=== PATIENT | male | born 1950 | race Caucasian/White ===

== ENCOUNTER 2017-03-09 14:16 | Outpatient (CLI) | payer BC, MEDICARE ==
[2017-03-09 15:48] LABS: Hematocrit 43.5 % (42.0-52.0); Mean Platelet Volume 8.2 fL (7.4-10.4); Red Blood Cell (RBC) Count 4.69 mill/uL (4.70-6.10); White Blood Cell (WBC) Count 8.2 thou/uL (4.8-10.8)
[2017-03-09 15:54] LABS: PTT 27.7 SEC (22.9-36.1)
[2017-03-09 16:01] LABS: Anion Gap 13 mmol/L (10-20); BUN (Urea Nitrogen) 17 mg/dL (8.4-25.7); Calc. Creatinine Clearance 0 mL/min (70-130); Calcium 9.6 mg/dL (7.8-10.44); Carbon Dioxide 26 mmol/L (23-31); Chloride 104 mmol/L (98-107); Estimated GFR-MDRD Greater than 90
== END 2017-03-09 14:17 | disposition home or self-care (01) ==
LOC: LABBT 14:16
PROVIDERS: ATTEND Surgery
DX: Z01.818 Encounter for other preprocedural examination (principal); M48.02 Spinal stenosis, cervical region; M50.20 Other cervical disc displacement, unspecified cervical region; M54.12 Radiculopathy, cervical region
CPT/HCPCS: 80048; 85027; 85610; 85730; 93005; 93010

== ENCOUNTER 2017-03-13 05:59 | Day surgery (SDC) | payer BC, MEDICARE ==
[2017-03-13] MEDS ORDERED: Thrombin 5000 UNITS/5 ML VIAL ONE (06:32)
[2017-03-13] MEDS ORDERED: Fentanyl 250 MCG/5 ML VIAL ONE (06:32)
[2017-03-13] MEDS ORDERED: Sodium Chloride 0.9% 10 ML ONE (06:32)
[2017-03-13] MEDS ORDERED: Midazolam HCl 2 mg/2 ml Vial ONE (06:32)
[2017-03-13] MEDS ORDERED: CEFAZOLIN/Water 2 GM/20 ML SYRINGE ONE (06:34)
[2017-03-13] MEDS ORDERED: Bisacodyl 10 MG SUPP PR PRN (10:49)
[2017-03-13] MEDS ORDERED: Promethazine HCl 25 MG/ML VIAL IM PRN ×2 (10:49→10:50)
[2017-03-13] MEDS ORDERED: Mag-Al 1200 mg/1200 mg/30 ML UDCUP PO PRN (10:49)
[2017-03-13] MEDS ORDERED: Acetaminophen 325 MG TAB PO PRN (10:49)
[2017-03-13] MEDS ORDERED: Acetaminophen/Codeine 30-300mg Tablet PO PRN (10:49)
[2017-03-13] MEDS ORDERED: Fleet Enema 133 ML BOT PR PRN (10:49)
[2017-03-13] MEDS ORDERED: traMADol HCl 50 MG TAB PO PRN (10:49)
[2017-03-13] MEDS ORDERED: Milk Of Magnesia 30 ML UDCUP PO PRN (10:49)
[2017-03-13] MEDS ORDERED: Morphine 2 MG/ML SYRINGE SLOW IVP PRN (10:49)
[2017-03-13] MEDS ORDERED: Ondansetron HCl/PF 4 MG/2 ML Vial IVP PRN (10:50)
[2017-03-13] MEDS ORDERED: Promethazine HCl 25 MG/ML VIAL SLOW IVP PRN (10:50)
[2017-03-13] MEDS ORDERED: CEFAZOLIN/Water 2 GM/20 ML SYRINGE SLOW IVP SCH (11:00)
[2017-03-13] MEDS ORDERED: Fentanyl 100 MCG/2 ML VIAL ONE ×2 (11:01→11:23)
--- NOTE | 2017-03-13 12:06 | OP ---
DATE OF PROCEDURE: 03/13/2017 OR: OR #12. WOUND TYPE: Type 1 wound. SURGEON: Ankur Moreau M.D. SOLAR FABRICATION TECHNICIAN: Apolinar Wesley PA-C. PREPROCEDURE DIAGNOSIS: Cervical stenosis with neck and arm pain. POSTPROCEDURE DIAGNOSES: Cervical stenosis with neck and arm pain. PROCEDURE: 1. Anterior C4-C5, C5-C6 diskectomies for decompression of spinal cord in the C5 and C6 nerve roots respectively. 2. Preparation of the endplates C4-C5, C5-C6 for placement of interbody spacer packed with local rachel ne autograft obtained from same incision and allograft, C4-C5 and C5-C6 for arthrodesis. 3. Anterior cervical plate and screw fixation, C4, C5, C6. 4. Use of operative microscope for microdissection. PROCEDURE: After informed consent was obtained from the patient, the patient brought to OR 12. Pro per patient pause and identification was carried out. He was placed under excellent general endotra cheal anesthesia and positioned supine on the operating table. All appropriate points were padded. Cervical spine was kept in neutral position. Through a right anterior oblique fernando that was drawn out we identified an appropriate trajectory using gross and fluoroscopic visualization for approach to the C4, C5, C6 segments. This area was sterilely cleansed, prepared, and draped. Proper patient pause and identification was again carried out. The wound was then opened with a combination of sh gina, monopolar and blunt dissection. We proceeded medial to the right carotid sheath and lateral to the tracheoesophageal bundle. We came upon the prevertebral layer of deep cervical fascia and the longus colli muscles and these were swept laterally. Localization film confirmed our area of intere st and the C4, C5, C6 segments were all exposed. Distraction at C4-C5 then occurred and the [facility] ope was brought in for microdissection. A diskectomy at C4-C5 was performed with excellent decompre ssion of the common dural tube and bilateral C5 nerve roots. The endplates were prepared and interb bettye spacer packed with local bone autograft obtained from same incision and allograft was placed at C4-C5 for arthrodesis. We then turned our attention to C5-C6 segment and distraction then occurred at C5-C6 and a diskectomy was performed at that segment as well with excellent decompression of the common dural tube and bilateral C6 nerve roots. Endplates were prepared and interbody spacer packed with local bone autograft obtained from same incision and allograft was placed at C5-C6 for arthrod esis. The microscope was then removed. Anterior cervical plate and screw fixation, C4, C5, C6 then occurred, final tightening occurred. We were satisfied with our construct both with gross and fluo roscopic visualization. The wound was copiously irrigated. Hemostasis was maximized throughout and the wound was then closed in anatomic layers following the placement of a drain. The patient then emerged from anesthesia.
[2017-03-13 12:33] VITALS: BMI 31.0
[2017-03-13] MEDS ORDERED: Ondansetron HCl/PF 4 MG/2 ML Vial ONE (12:54)
[2017-03-13] MEDS ORDERED: Glycopyrrolate 0.2 MG/ML 5 ML SYRINGE ONE (12:54)
[2017-03-13] MEDS ORDERED: Cefepime 1 GM VIAL ONE (12:54)
[2017-03-13] MEDS ORDERED: PHENYLEPHRINE-NS 100 MCG/ML 10 ML SYRINGE ONE (12:54)
[2017-03-13] MEDS ORDERED: Propofol 200 MG/20 ML VIAL ONE (12:54)
[2017-03-13] MEDS ORDERED: Lidocaine 1% PF 5 ML VIAL ONE (12:54)
[2017-03-13] MEDS: Sodium Chloride 0.9% 1,000 ML IV SCH (13:08)
[2017-03-13] MEDS ORDERED: CEFAZOLIN 1 GM VIAL ONE (14:27)
[2017-03-13] MEDS: CEFAZOLIN/Water 2 GM/20 ML SYRINGE SLOW IVP SCH ×2 (16:49→23:40)
[2017-03-13] MEDS: tiZANidine HCl 4 MG TAB PO PRN (20:49)
[2017-03-13] MEDS: metFORMIN XR 500 MG TAB PO SCH (20:50)
[2017-03-13] MEDS ORDERED: Atorvastatin Calcium 10 MG TAB PO SCH ×2 (21:00)
[2017-03-13] MEDS ORDERED: Vit A,C & E/Lutein/Minerals Tablet PO SCH (21:00)
[2017-03-13] MEDS ORDERED: FOLIC ACID PO SCH (21:00)
[2017-03-13] MEDS ORDERED: metFORMIN XR 500 MG TAB PO SCH (21:00)
[2017-03-13] MEDS ORDERED: Multivit, Therapeutic 1 TAB PO SCH (21:00)
[2017-03-13] MEDS ORDERED: B6 PO SCH ×2 (21:00)
[2017-03-13] MEDS ORDERED: Amlodipine 10 MG TAB PO SCH ×2 (21:00)
[2017-03-13] MEDS ORDERED: Stress 600 With Zinc 1 TAB PO SCH (21:00)
[2017-03-13] MEDS ORDERED: Non-Formulary Item 1 EACH (Vitamin B Complex [B Complex] 1 TAB) PO SCH (21:00)
[2017-03-13] MEDS ORDERED: MULTIVITAMIN PO SCH (21:00)
[2017-03-13] MEDS ORDERED: IRON PO SCH (21:00)
[2017-03-13] MEDS ORDERED: B12 PO SCH ×2 (21:00)
[2017-03-13] MEDS ORDERED: LEVOMEFOLATE CALCIUM PO SCH ×2 (21:00)
[2017-03-13] MEDS: HYDROcodone/Acetaminophen 7.5/325 mg Tablet PO PRN (23:38)
[2017-03-14] MEDS: Sodium Chloride 0.9% 1,000 ML IV SCH (02:32)
[2017-03-14] MEDS: tiZANidine HCl 4 MG TAB PO PRN (02:35)
[2017-03-14] MEDS: HYDROcodone/Acetaminophen 7.5/325 mg Tablet PO PRN (05:52)
[2017-03-14] MEDS: CEFAZOLIN/Water 2 GM/20 ML SYRINGE SLOW IVP SCH (07:41)
[2017-03-14] MEDS: metFORMIN XR 500 MG TAB PO SCH (07:45)
[2017-03-14 08:09] VITALS: BP 124/66
[2017-03-14 08:13] VITALS: TEMP 98.5
[2017-03-14] MEDS ORDERED: Losartan Potassium 25 MG TAB PO SCH (09:00)
[2017-03-14] MEDS ORDERED: Non-Formulary Item 1 EACH (Losartan Potassium [Losartan Potassium] 1 TAB) PO SCH (09:00)
--- NOTE | 2017-03-14 12:28 | PRG ---
DATE OF SERVICE: 03/14/2017 Mr. Kovacs on his postoperative day #1, from C4-C6 ACDF. His drain has had minimal output overnight. His exam demonstrates good strength in his upper extremities and he has improvement in his arm jyoti n. He has met criteria for dismissal whenever entering postoperative issues, we will follow up in hoda garcia. He may be dismissed.
== END 2017-03-14 09:12 | disposition home or self-care (01) ==
LOC: SDC 05:59 → 2SW 10:48 → SDC 03-14 09:12
PROVIDERS: ATTEND Surgery
PROC: 0RG2070 Fusion of 2 or more Cervical Vertebral Joints with Autologous Tissue Substitute, Anterior Approach, Anterior Column, Open Approach (ICD-10-PCS; principal; 2017-03-14)
DX: M48.02 Spinal stenosis, cervical region (principal); M54.12 Radiculopathy, cervical region; M50.222 Other cervical disc displacement at C5-C6 level; Z98.890 Other specified postprocedural states
CPT/HCPCS: 76001; 96374; A4216; C1713; J0690; J0692; J2001; J2250; J2405; J2704; J3010; J3490

== ENCOUNTER 2017-04-27 08:43 | Outpatient (CLI) | payer BC, MEDICARE ==
--- NOTE | 2017-04-27 10:21 | RAD ---
CERVICAL SPINE 3 VIEWS: Date: 04/27/17 HISTORY: 67-year-old male with cervical radiculopathy, 4 weeks status post neck surgery. FINDINGS: Anterior cervical fusion changes noted at C4, C5, and C6 with intradiscal prosthesis. Disc osteophyto sis at C6-C7. No significant prevertebral soft tissue swelling. No malalignment. IMPRESSION: Postop anterior cervical fusion changes at C4, C5, and C6. POS: [facility]
== END 2017-04-27 08:44 | disposition home or self-care (01) ==
LOC: TBSIIMAG 08:43
PROVIDERS: ATTEND Surgery
DX: M54.12 Radiculopathy, cervical region (principal); Z98.1 Arthrodesis status
CPT/HCPCS: 72040

== ENCOUNTER → 2018-08-09 | Day surgery (SDC) | payer BC, MEDICARE ==
[2018-08-08 11:27] VITALS: BMI 32.1
[~2018-08-09] MED LIST: Gadobenate Dimeglumine 529 MG/1 ML (20ML VIAL) ONE; Lidocaine 1% PF 5 ML VIAL ONE; PROPOFOL 200 MG/20 ML VIAL ONE; diphenhydrAMINE 25 MG CAP ONE
--- NOTE | 2018-08-09 12:10 | RAD ---
LUMBAR SPINE 3 VIEWS: Date: 08/09/18 HISTORY: Preop. COMPARISON: Lumbar spine radiograph dated 01/09/17. FINDINGS: There are five non-rib bearing lumbar-type vertebrae. No acute fracture or malalignment. Mild narrowi ng of the disc space from L2-S1. There are circumferential osteophytes at these levels. There is narr owing of the intraspinous space at L3-4 and L4-5. No significant listhesis. Mild vascular calcifications. Mild degenerative changes at both SI joints. IMPRESSION: 1. Chronic findings. No acute abnormality. 2. Cholelithiasis. POS: [facility]
[2018-08-09 12:55] LABS: Estimated GFR-MDRD - POC Greater than 90
--- NOTE | 2018-08-09 15:42 | MRI ---
ADDENDUM: There is no abnormal enhancement demonstrated. POS: [facility]
== END ==
LOC: SDC/OP 10:02 → EDSTATUS 12:00
PROVIDERS: ATTEND Surgery
DX: M51.16 Intervertebral disc disorders with radiculopathy, lumbar region (principal); M48.061 Spinal stenosis, lumbar region without neurogenic claudication; N28.1 Cyst of kidney, acquired; Z79.84 Long term (current) use of oral hypoglycemic drugs; Z79.899 Other long term (current) drug therapy
CPT/HCPCS: 72100; 72158; 82565; A9577; Q0163

== ENCOUNTER 2019-03-24 05:46 | Outpatient (CLI) | payer BC, MEDICARE ==
[2019-03-24 10:57] LABS: Hemoglobin 16.2 g/dL (14.0-18.0); Mean Corpuscular HGB CONC 33.6 g/dL (32.0-36.0); Mean Corpuscular Hemoglobin 29.9 pg (27.0-31.0); Mean Corpuscular Volume 89.1 fL (78.0-98.0); Mean Platelet Volume 8.4 fL (7.4-10.4); Platelet Count 221 thou/uL (130-400); Red Blood Cell (RBC) Count 5.41 mill/uL (4.70-6.10)
[2019-03-24 11:01] LABS: PTT 26.3 SEC (22.9-36.1); Prothrombin Time 13.4 SEC (12.0-14.7)
[2019-03-24 11:12] LABS: Anion Gap 13 mmol/L (10-20); BUN (Urea Nitrogen) 11 mg/dL (8.4-25.7); Calc. Creatinine Clearance 0 mL/min (70-130); Calcium 9.1 mg/dL (7.8-10.44); Carbon Dioxide 27 mmol/L (23-31); Chloride 101 mmol/L (98-107); Estimated GFR-MDRD Greater than 90; Glucose 102 mg/dL (80-115); Potassium 3.4 mmol/L (3.5-5.1); Sodium 138 mmol/L (136-145)
--- NOTE | 2019-03-24 16:28 | EKG ---
Test Reason : Blood Pressure : / mmHG Vent. Rate : 061 BPM Atrial Rate : 061 BPM P-R Int : 142 ms QRS Dur : 128 ms QT Int : 414 ms P-R-T Axes : 015 -04 039 degrees QTc Int : 416 ms Normal sinus rhythm Indeterminate axis Right bundle branch block Abnormal ECG When compared with ECG of 09-MAR-2017 15:16, No significant change was found Confirmed by DR. Ketty ARMENDARIZ ([id number]) on 03/24/2019 4:28:29 PM Referred By: CK Confirmed By:DR. Ketty ARMENDARIZ
== END 2019-03-24 05:47 | disposition home or self-care (01) ==
LOC: LABBT 05:46
PROVIDERS: ATTEND Surgery
DX: Z01.818 Encounter for other preprocedural examination (principal); M48.061 Spinal stenosis, lumbar region without neurogenic claudication; M54.16 Radiculopathy, lumbar region
CPT/HCPCS: 80048; 85027; 85610; 85730; 93005; 93010

== ENCOUNTER 2019-03-25 07:25 | Day surgery (SDC) | payer BC, MEDICARE ==
[2019-03-25] MEDS ORDERED: Sodium Chloride 0.9% 10 ML ONE (10:11)
[2019-03-25] MEDS ORDERED: Thrombin 5000 UNITS/5 ML VIAL ONE ×2 (10:11→12:16)
[2019-03-25] MEDS ORDERED: Fentanyl 100 MCG/2 ML VIAL ONE ×4 (10:26→16:22)
[2019-03-25] MEDS ORDERED: HYDROmorphone 2 MG/ML VIAL ONE ×2 (11:11→14:02)
[2019-03-25] MEDS ORDERED: Ketamine 50 MG/ML (10ML VIAL) ONE (11:53)
[2019-03-25] MEDS ORDERED: Phenylephrine HCL 10 MG/ML VIAL ONE (11:56)
[2019-03-25] MEDS ORDERED: Glycopyrrolate 0.2 MG/ML 5 ML SYRINGE ONE (11:56)
[2019-03-25] MEDS ORDERED: Midazolam HCl 2 mg/2 ml Vial ONE (12:02)
[2019-03-25] MEDS ORDERED: Ondansetron PF 4 MG/2 ML Vial ONE (12:39)
[2019-03-25] MEDS ORDERED: Acetaminophen 325 MG TAB PO PRN (13:55)
[2019-03-25] MEDS ORDERED: Mag-Al 1200 mg/1200 mg/30 ML UDCUP PO PRN (13:55)
[2019-03-25] MEDS ORDERED: Acetaminophen/Codeine 30-300mg Tablet PO PRN (13:55)
[2019-03-25] MEDS ORDERED: Bisacodyl 10 MG SUPP PR PRN (13:55)
[2019-03-25] MEDS ORDERED: tiZANidine HCl 4 MG TAB PO PRN (13:55)
[2019-03-25] MEDS ORDERED: Milk Of Magnesia 30 ML UDCUP PO PRN (13:55)
[2019-03-25] MEDS ORDERED: Ondansetron PF 4 MG/2 ML Vial IVP PRN (13:55)
[2019-03-25] MEDS ORDERED: traMADol HCl 50 MG TAB PO PRN (13:55)
[2019-03-25] MEDS ORDERED: Fleet Enema 133 ML BOT PR PRN (13:55)
[2019-03-25] MEDS ORDERED: Morphine 2 MG/ML SYRINGE SLOW IVP PRN (13:55)
[2019-03-25] MEDS ORDERED: Promethazine HCl 25 MG/ML VIAL IM PRN (13:57)
[2019-03-25] MEDS ORDERED: HYDROmorphone 2 MG/ML VIAL SLOW IVP PRN (13:57)
[2019-03-25] MEDS ORDERED: Meperidine HCl/PF 25 MG/ML VIAL SLOW IVP PRN (13:57)
[2019-03-25] MEDS ORDERED: Ondansetron HCl/PF 4 MG/2 ML Vial IVP PRN (13:57)
--- NOTE | 2019-03-25 14:16 | OP ---
DATE OF PROCEDURE: 03/25/2019 LOCATION: OR 12. WOUND CLASSIFICATION: Type 1 wound. STATE TROOPER: Apolinar Wesley PA-C PREPROCEDURE DIAGNOSES: Multilevel lumbar stenosis with low back and leg pain, history of L4-L5 surgery. PROCEDURES PERFORMED: 1. L1-L2, L2-L3, and L3-L4 laminectomies, partial facetectomies, and foraminotomies. 2. Bilateral revision hemilaminotomy L4-L5, left-sided diskectomy. DESCRIPTION OF PROCEDURE: After informed consent was obtained from the patient, the patient was brought to the OR. Proper patient, pause, and identification were carried out. He was placed under excellent general endotracheal anesthesia and positioned prone on the OR table. Prior midline lumbar wound was identified, extended cephalad. This region was sterilely cleansed, prepared, and draped. Proper patient, pause, and identification were carried out. The wound was then opened with a combination of sharp, monopolar, and blunt dissection. The L1, L2, L3, L4, L5 dorsal spines and lamina were exposed. There was a scar tissue in L4-L5 region. We then did localization film, confirmed our area of interest. We performed L1-L2, L2-L3, and L3-L4 laminectomies, partial facetectomies, foraminotomies with bilateral L4-L5 revision hemilaminotomy, foraminotomy, and left-sided diskectomy with excellent decompression of common dural tube. Copious irrigation occurred throughout as did maximizing hemostasis. The wound was then closed in anatomic layers following sprinkling of vancomycin powder. The patient emerged from anesthesia. Job ID: [id number]
[2019-03-25 17:41] VITALS: BMI 34.4
[2019-03-25] MEDS: Sodium Chloride 0.9% 1,000 ML IV SCH (18:27)
[2019-03-25] MEDS: metFORMIN 500 MG TAB PO SCH (18:27)
[2019-03-25] MEDS: CEFAZOLIN 2 GM in Premix Bag 1 BAG IVPB SCH (18:29)
[2019-03-25] MEDS ORDERED: Atorvastatin Calcium 10 MG TAB PO SCH (21:00)
[2019-03-25] MEDS ORDERED: Losartan 25 MG TAB PO SCH (21:00)
[2019-03-25] MEDS ORDERED: Amlodipine 10 MG TAB PO SCH (21:00)
[2019-03-25] MEDS ORDERED: Multivitamin W/ Minerals 1 TAB PO SCH (21:00)
[2019-03-25] MEDS: HYDROcodone/Acetaminophen 7.5/325 mg Tablet PO PRN (21:40)
[2019-03-26] MEDS: CEFAZOLIN 2 GM in Premix Bag 1 BAG IVPB SCH (01:01)
[2019-03-26] MEDS: HYDROcodone/Acetaminophen 7.5/325 mg Tablet PO PRN (01:09)
[2019-03-26 01:24] VITALS: TEMP 98.4
[2019-03-26] MEDS: Sodium Chloride 0.9% 1,000 ML IV SCH (06:00)
[2019-03-26 08:12] VITALS: BP 121/75
[2019-03-26] MEDS: metFORMIN 500 MG TAB PO SCH (08:37)
[2019-03-26] MEDS ORDERED: FLU VACC TS2019-20(65YR UP)/PF 180 MCG/0.5 ML SYRINGE IM ONE (18:15)
--- NOTE | 2019-03-26 18:44 | DIS ---
DATE OF ADMISSION: 03/25/2019 DATE OF DISCHARGE: 03/26/2019 This is Apolinar Wesley PA-C dictating a report for Ankur Moreau MD. DISCHARGE DIAGNOSES: 1. Lumbar stenosis with radiculopathy. 2. Hypertension. HOSPITAL COURSE: Mr. Kovacs was admitted to undergo multilevel lumbar laminectomies with Dr. Moreau. He did not have a CSF leak postoperatively. The patient's surgery was without complication, required one overnight stay for adequate pain control. At the time of discharge, the patient did have some incisional back pain, but otherwise significant improvement in back and bilateral lower extremity pain. He had good strength in the bilateral lower extremities and was walking unassisted. Appropriate patient education and outpatient followups were provided to the patient and postoperative care and the patient was very appreciative of his care as well as the surgical outcome. He certainly understood to call the office with questions or concerns prior to his next followup appointment. Job ID: [id number]
== END 2019-03-26 10:15 | disposition home or self-care (01) ==
LOC: SDC 07:25 → 2SW 13:55 → SDC 03-26 10:15
PROVIDERS: ATTEND Surgery
PROC: 0ST20ZZ Resection of Lumbar Vertebral Disc, Open Approach (ICD-10-PCS; principal; 2019-03-25)
PROC: 01NB0ZZ Release Lumbar Nerve, Open Approach (ICD-10-PCS; principal; 2019-03-25)
DX: M48.061 Spinal stenosis, lumbar region without neurogenic claudication (principal); M54.16 Radiculopathy, lumbar region; I10 Essential (primary) hypertension; Z79.84 Long term (current) use of oral hypoglycemic drugs; Z79.899 Other long term (current) drug therapy; Z98.1 Arthrodesis status
CPT/HCPCS: 76000; J0131; J0690; J1170; J2250; J2370; J2405; J3010; J3370; J3490

== ENCOUNTER 2020-03-02 14:30 | Outpatient (CLI) | payer BC, MEDICARE ==
[2020-03-02] MEDS ORDERED: Magnevist 469MG/ML 20 ML VIAL ONE (14:46)
--- NOTE | 2020-03-02 18:23 | MRI ---
MRI OF THE LUMBAR SPINE WITH AND WITHOUT CONTRAST: 03/02/20 HISTORY: Low back pain, radiculopathy, prior lumbar spine surgery. TECHNIQUE: Multiplanar and multisequence MR imaging of the lumbar spine is provided with and without contrast. FINDINGS: The sagittal STIR imaging demonstrates mild degenerative edematous end plate change anteriorly at the L1-2 level. On the basis of five lumbar type vertebral bodies, the conus medullaris terminates at the L1 level. T12-L1: There is disc space narrowing with disc desiccation and mild disc bulge. There is mild bilate ral facet hypertrophy and hypertrophy of the ligamentum flavum with no significant central canal or n eural foraminal stenosis. L1-2: There is disc space narrowing and disc desiccation. There is a small central/right paracentral/ right foraminal disc protrusion. No significant central canal stenosis is evident. Mild bilateral venkatesh ral foraminal stenosis is noted. L2-3: There is disc space narrowing with disc desiccation and mild disc bulge. No central canal steno sis. Bilateral facet hypertrophy noted. Moderate right and mild left neural foraminal stenosis. L3-4: There is disc space narrowing with disc desiccation and mild disc bulge. There is no central ca nal stenosis. Bilateral facet hypertrophy noted with moderate/severe bilateral neural foraminal steno sis, right greater than left. L4-5: Disc space narrowing with disc desiccation and mild disc bulge. No central canal stenosis. Bila teral facet hypertrophy with moderate/severe bilateral neural foraminal stenosis, left greater than r ight. Small left foraminal disc protrusion. L5-S1: There is disc space narrowing with degenerative end plate change and disc desiccation. There i s bilateral facet hypertrophy with moderate/severe bilateral neural foraminal stenosis, right greater than left. No significant central canal stenosis. The patient appears status post hemilaminectomy on the left at L5. The patient appears status post bilateral laminectomy at L1-2 through L4-5 levels with small fluid co llection posterior to the thecal sac at L1 measuring up to 1.1 cm. A similar elongated fluid collecti on is seen posterior to the thecal sac at the L3 through L5 level measuring up to 7 cm in craniocauda l dimension and up to 1.6 cm in AP dimension. This is a nonspecific postoperative fluid collection. A similar small fluid collection is noted within the subcutaneous fat at the axial level of the L1-2 i ntervertebral disc measuring in the 1 cm range. The postcontrast imaging demonstrates no abnormal enhancement involving the intervertebral discs or t he imaged osseous structures. There is a single mildly enhancing anterior nerve root of the cauda equ jamila which approaches the left neural foramen in the L4-5 region which may represent a mildly enhancin g and inflamed L4 nerve root on the left which may signify a mild degree of arachnoiditis. Review of the retroperitoneal structures demonstrates no acute findings. IMPRESSION: Postoperative and degenerative changes noted within the lumbar spine as detailed above. Finding inclu de a single mildly enhancing nerve root of the cauda equina anteriorly on the left as well as small p ostoperative fluid collections dorsal to the thecal sac. POS: [facility]
== END 2020-03-02 14:31 | disposition home or self-care (01) ==
LOC: BICMRI 14:30
PROVIDERS: ATTEND Surgery
DX: M47.26 Other spondylosis with radiculopathy, lumbar region (principal); Z98.890 Other specified postprocedural states
CPT/HCPCS: 72158; 82565; A9579